=== PATIENT | male | born 1985 | race Two or more races ===

== ENCOUNTER 2017-05-21 09:46 | Day surgery (SDC) | payer BC ==
[~2017-05-21] VITALS: Ht 193 cm; Wt 81.6 kg
[2017-05-21] VITALS (11 sets, daily range): BP systolic 135–169; BP diastolic 71–94
[~2017-05-21 09:46] MED LIST: NKM
[2017-05-21] MEDS ORDERED: Propofol 10mg/ml 100ml btl IV ONE (09:47)
[2017-05-21] MEDS ORDERED: Depo-Medrol 80mg Vial ONE (10:10)
[2017-05-21] MEDS ORDERED: EPINEPHrine 1mg/1ml Amp ONE (10:10)
[2017-05-21] MEDS ORDERED: Lidocaine 1% Plain 30 ml INJ ONE (10:10)
[2017-05-21] MEDS ORDERED: Bupivacaine w/Epi 0.5% 30ml Vial INJ ONE (10:11)
[2017-05-21] MEDS ORDERED: Ropivacaine 5mg/ml Vial 20ml INJ ONE ×2 (10:26→12:17)
[2017-05-21] MEDS ORDERED: LR 1000ml 1,000 ML IVLG SCH (10:44)
--- NOTE | 2017-05-21 10:44 | Anethesia Preoperative Eval ---
Anesthesia Pre-op PMH/ROS General Date of Evaluation: May 21, 2017 Time of Evaluation: 11:01 Anesthesiologist: Radha ASA Score: ASA 2 Mallampati Score Class I : Soft palate, uvula, fauces, pillars visible Class II: Soft palate, uvula, fauces visible Class III: Soft palate, base of uvula visible Class IV: Only hard plate visible Mallampati Classification: Class II Surgeon: Kyleigh Diagnosis: L Knee Pain Surgical Procedure: L Knee ACL Repair Anesthesia History: none Family History: no anesthesia problems Allergies: Coded Allergies: No Known Allergies (Unverified , 05/15/17) Medications: see eMAR Past Medical History Pulmonary: Reports: other - Pneumothorax PSxH Narrative: Thoracotomy Anesthesia Pre-op Phys. Exam Physician Exam Last Vital Signs Date Time Temp Pulse Resp B/P Pulse Ox O2 Delivery O2 Flow Rate FiO2 05/21/17 10:14 97.5 63 17 135/77 100 Room Air Constitutional: NAD Neurologic: CN 2-12 intact Cardiovascular: RRR Respiratory: CTA Gastrointestinal: S/NT/ND Airway Exam Mallampati Score: Class II MO: full ROM: full Teeth: intact Anesthesia Pre-op A/P Risk Assessment & Plan Assessment: ASA 2 Plan: GA, Adductor Block Status Change Before Surgery: No Pre-Antibiotics Dru Grams Ancef IV Given Within 1 Hr of Incision: Yes Time Given: 11:16 Manish Garcia MD May 21, 2017 10:44
[2017-05-21] MEDS ORDERED: Norco 5mg/325mg tab ORAL PRN ×2 (10:45→18:01)
[2017-05-21] MEDS ORDERED: Atropine Inj 1mg/10ml Syr IV PRN (10:45)
[2017-05-21] MEDS ORDERED: Oxycodone/Acetaminophen 5-325 ORAL PRN (10:45)
[2017-05-21] MEDS ORDERED: Hydromorphone 0.5mg/0.5ml inj IVP PRN (10:45)
[2017-05-21] MEDS ORDERED: fentaNYL 100 mcg/2 mL IV PRN (10:45)
[2017-05-21] MEDS ORDERED: Ketorolac 60mg Inj IV PRN (10:45)
[2017-05-21] MEDS ORDERED: Norco 7.5mg/325mg tab ORAL PRN (10:45)
[2017-05-21] MEDS ORDERED: Meperidine 25mg/0.5ml Inj IV PRN (10:45)
[2017-05-21] MEDS ORDERED: DiphenhydrAMINE 50mg/ml Inj IVP PRN (10:45)
[2017-05-21] MEDS ORDERED: Ketorolac 30mg Inj IV PRN (10:45)
[2017-05-21] MEDS ORDERED: Midazolam 2mg/2ml Inj IVP PRN (10:45)
[2017-05-21] MEDS ORDERED: Metoclopramide 10mg/2ml Inj IVP PRN (10:45)
[2017-05-21] MEDS ORDERED: LORazepam Inj 2mg/ml 1ml IV PRN (10:45)
[2017-05-21] MEDS ORDERED: LR 1000ml ONE (11:00)
[2017-05-21] MEDS ORDERED: Lidocaine 1% MPF 10mg/ml 5ml ONE (11:00)
[2017-05-21] MEDS ORDERED: Ketamine 500mg Inj ONE (11:00)
[2017-05-21] MEDS ORDERED: Dexamethasone 4mg/ml vial ONE (11:00)
[2017-05-21] MEDS ORDERED: fentaNYL 100 mcg/2 mL IV ONE (11:00)
--- NOTE | 2017-05-21 11:04 | Pre-Procedure Note/Attestation ---
Pre-Procedure Note/Attestation Complete Prior to Procedure Planned Procedure: left Procedure Narrative: left knee acl reconstruction Indications for Procedure Pre-Operative Diagnosis: left knee acl Attestation I attest that I discussed the nature of the procedure; its benefits; risks and complications; and alternatives (and the risks and benefits of such alternatives ), prior to the procedure, with the patient (or the patient's legal brand representative). I attest that, if there was a reasonable possibility of needing a blood transfusion, the patient (or the patient's legal brand representative) was given the [facility] standardized written summary, pursuant to the Jules Fito Blood Safety Act ([place] Health and Safety Code # 1645, as amended). I attest that I re-evaluated the patient just prior to the surgery and that there has been no change in the patient's H&P, except as documented below: JERMAINE SIMMS May 21, 2017 11:04
[2017-05-21] MEDS ORDERED: Bacitracin 50000 Units Vial ONE (11:55)
--- NOTE | 2017-05-21 13:06 | Immediate Post-Op Evaluation ---
Immediate Post-Op Evalulation Immediate Post-Op Evalulation Procedure: L ACL Repair Date of Evaluation: May 21, 2017 Time of Evaluation: 13:15 IV Fluids: 700 LR Blood Products: 0 Estimated Blood Loss: 25 Urinary Output: 0 Blood Pressure Systolic: 138 Blood Pressure Diastolic: 72 Pulse Rate: 67 Respiratory Rate: 16 O2 Sat by Pulse Oximetry: 100 Temperature (Fahrenheit): 97.5 Pain Score (1-10): 2 Nausea: No Vomiting: No Complications 0 Patient Status: awake, reacts, patent, extubated, none Hydration Status: adequate Dru Grams Ancef IV Given Within 1 Hr of Incision: Yes Time Given: 11:16 Manish Garcia MD May 21, 2017 13:06
[2017-05-21] MEDS ORDERED: Acetaminophen (Non formulary) 1,000 MG/100 ML ML IV ONE (14:00)
--- NOTE | 2017-05-22 10:47 | 48 Hour Post Anesthesia Eval ---
Post Anesthesia Evaluation Procedure: L ACL Repair Date of Evaluation: May 21, 2017 Time of Evaluation: 15:22 Blood Pressure Systolic: 135 0: 71 Pulse Rate: 76 Respiratory Rate: 18 Temperature (Fahrenheit): 97.5 O2 Sat by Pulse Oximetry: 99 Airway: patent Nausea: No Pain Intensity: 2 Hydration Status: adequate Cardiopulmonary Status: Stable Mental Status/LOC: patient returned to baseline Follow-up Care/Observations: 0 Post-Anesthesia Complications: 0 Follow-up care needed: ready to discharge Manish Garcia MD May 22, 2017 10:47
[2017-05-22 10:48] VITALS: BP 135/71
--- NOTE | 2017-05-27 06:01 | Operative Note - Dictated ---
NOTE: Poor Audio PREOPERATIVE DIAGNOSIS: Left knee complete ACL tear. POSTOPERATIVE DIAGNOSIS: Left knee complete ACL tear. PROCEDURE: Left knee ACL reconstruction with Achilles tendon allograft and 2.5 absorbable Boimet composite screws, and modifier 22 secondary to difficulty due to medical issues with cardiac issues. SURGEON: Miguel Arizmendi M.D. RECORDS TECHNICIAN: Unknown. CONCRETE PAVING SUPERVISOR: None. PREOPERATIVE NOTE: This is a pleasant gentleman, who has been having issues with his knee. I believe he was snowboarding and sustained a complete ACL rupture and complained about more ankle pain _ and instability. He regained his range with rehab. I explained to him the surgery and risks being infection, bleeding, anesthetic risks, neurovascular damage, failure of the procedure, and wound care. The patient agreed. Consents were obtained. OPERATIVE ROOM NOTE: Under the benefit of endotracheal intubation and general anesthetic, the patient's left knee was prepped and draped in appropriate manner. A preoperative examination was done and there was a negative Artemio as well as anterior drawer sign. We then proceeded to placement of the scope into the knee. The synovectomy medial joint line. Lateral joint line was entered, the ACL was completely torn. I then proceeded to debride the ACL in its entirety and the tibial plates. about 60 degrees, I could footprint to drill the pin through overreaming this ruptured graft. I then proceeded to and then worked on the femoral side protecting the back wall with my anterior AML guide. I then broached the pin and went in the lateral cortex and inserted a rim in with an 8.9 pin. graft was appreciated. The bony part of the graft was then sewn to hold on the medial femoral side, secured to this area by absorbable Biomet screw. We had made tight fixation. Upon tensioning with a posterior drawer, I then proceeded to secure the soft tissue graft with a Biomet BioComposite screw. The patient tolerated this well. There were no complications. Postoperative drawer was negative. Artemio's was negative. The patient went to recovery room in stable condition. Bal Yesika Arizmendi DR: [place] JOB#: [id number] CC:
== END 2017-05-21 15:35 | disposition home or self-care (01) ==
LOC: SUR 09:46
DX: S83.512A Sprain of anterior cruciate ligament of left knee, initial encounter (principal); X58.XXXA Exposure to other specified factors, initial encounter; Y92.89 Other specified places as the place of occurrence of the external cause; Y99.9 Unspecified external cause status; J45.909 Unspecified asthma, uncomplicated
CPT/HCPCS: 29888; 97161; C1713; J0171; J1100; J2250; J2405; J2704; J2795; J3010; J3490; J7120; 94003; 94150; J2180